=== PATIENT | male | born 1950 | race Caucasian/White ===

== ENCOUNTER 2019-03-17 14:06 | Emergency (ER) | payer SELFPAY, MEDICAID | END 2019-03-17 18:36 | disposition home or self-care (01) | LOC: E/R 14:06 | DX: R33.9 Retention of urine, unspecified (principal); R40.2142 Coma scale, eyes open, spontaneous, at arrival to emergency department; R40.2252 Coma scale, best verbal response, oriented, at arrival to emergency department; R40.2362 Coma scale, best motor response, obeys commands, at arrival to emergency department | CPT/HCPCS: 81003; 93005; 99283 ==